=== PATIENT | female | born 1990 | race Caucasian/White ===

== ENCOUNTER → 2019-08-18 09:50 | Outpatient (CLI) | payer OTHER, SELFPAY ==
[2019-08-18 15:57] LABS: Rubella Antibody IgG 29.5 IU/mL (>15)
[2019-08-19 10:12] LABS: Varicella IgG Antibody 536 index (Immune >165)
== END ==
PROVIDERS: PCP Registered Nurse Diabetes Educator; Referring Provider Obstetrics & Gynecology; Visit Provider Obstetrics & Gynecology
DX: Z01.84 Encounter for antibody response examination (principal)
CPT/HCPCS: 86762; 86765; 86787

== ENCOUNTER → 2019-11-25 17:09 | Outpatient (CLI) | payer OTHER, SELFPAY ==
[2019-11-25 18:19] LABS: Add Manual Diff / Slide Review NO; Basophils Absolute Auto 0 /uL (0-100); Basophils Percent Auto 0.1 % (0-2); Eosinophils Absolute Auto 100 /uL (0-450); Eosinophils Percent Auto 0.5 % (2-4); Hematocrit 35.1 % (36-46); Lymphocytes Absolute Auto 1800 /uL (1100-4500); Lymphocytes Percent Auto 16.6 % (25-40); Mean Corpuscular HGB Conc 34.2 % (30-36); Mean Corpuscular Hemoglobin 32.2 PG (26-34); Mean Corpuscular Volume 94.2 fL (80-100); Monocytes Absolute Auto 700 /uL (0-900); Monocytes Percent Auto 6.9 % (3-14); Neutrophils Absolute Auto 8100 /uL (1500-7000); Neutrophils Percent Auto 75.9 % (50-75); Platelet Count 209 X10^3/uL (150-400); Red Blood Cell Count 3.73 X10^6/uL (4.0-5.2); Red Cell Distribution Width 12.9 % (11.6-14.8); White Blood Cell Count 10.6 X10^3/uL (4.5-11.0)
[2019-11-25 19:04] LABS: Hepatitis B Surface Antigen NEGATIVE s/c (NEGATIVE); Rubella Antibody IgG 21.4 IU/mL (>15)
[2019-11-25 19:30] LABS: HIV 1 & 2 Ab/Ag 4th Gen Combo NEGATIVE (NEGATIVE); Hep C Virus Ab w/Reflex Quant NEGATIVE s/c (NEGATIVE)
[2019-11-25 19:38] LABS: Appearance Urine UA CLEAR; Bilirubin Urine UA NEGATIVE (NEGATIVE); Color Urine UA YELLOW; Glucose Urine UA NEGATIVE (Negative); Ketones Urine UA NEGATIVE (NEGATIVE); Leukocyte Esterase Urine UA NEGATIVE (NEGATIVE); Nitrite Urine UA NEGATIVE (Negative); Occult Blood Urine UA NEGATIVE (Negative); Protein Urine UA NEGATIVE (Negative); Specific Gravity Urine UA <=1.005 (1.000-1.035); Urobilinogen Urine UA 0.2 E.U./dL (0.2)
[2019-11-25 19:39] LABS: pH Urine UA 6.5 (4.5-8.0)
[2019-11-27 04:47] LABS: RPR Screen Non Reactive (Non Reactive)
== END ==
PROVIDERS: PCP Registered Nurse Diabetes Educator; Referring Provider Obstetrics & Gynecology; Visit Provider Obstetrics & Gynecology
DX: Z34.81 Encounter for supervision of other normal pregnancy, first trimester (principal)
CPT/HCPCS: 36415; 80055; 81003; 86803; 86850; 86900; 86901; 87086; 87389; 87491; 87591

== ENCOUNTER → 2020-02-21 07:32 | Outpatient (CLI) | payer OTHER, SELFPAY ==
--- NOTE | 2020-02-21 07:34 | DI.US.S_ITS ---
PROCEDURE: US OB >= 14 WEEKS FETUS INDICATIONS: Anatomy Scan OUTSIDE/PRIOR DATING DATA: First dating scan (date and location): 11/25/2019 . Estimated date of delivery (CHRISTOPHER) from first dating scan: 07/11/2020 . TECHNIQUE: Real-time scanning was performed of the fetus, with image documentation and biometric measurements. Endovaginal scanning: No COMPARISON: [facility], , OB >= 14 WEEKS FETUS, 02/20/2020, 12:02. FINDINGS: General: A single living intrauterine gestation is present. Presentation: Breech. Placenta: Placental position is posterior , without previa. Amniotic fluid index: 12.2 cm, normal range is 5-24 cm. heart rate: 152 beats per minute. Maternal cervical canal: 3.9 cm long. Normal lower limit is 2.5 cm. biometrics: Biparietal diameter: 20 weeks 1 day Head circumference: 20 weeks 1 day Abdominal circumference: 20 weeks 6 days Femur length: 19 weeks 6 days Estimated gestational age from initial scan: 19 weeks 6 days Composite gestational age from present scan: 20 weeks 2 days Estimated weight and percentile: 347 g; 73rd percentile Measurement variability for biometric dating: +/- 7 days from 14 weeks to 15 weeks 6 days gestation, +/- 10 days from 16 weeks to 21 weeks 6 days gestation, +/- 2 weeks from 22 weeks to 27 weeks 6 days gestation, +/- 3 weeks for 28 weeks gestation or later. weight reference: 4500 g or EFW >90/95% is considered macrosomia or large for gestational age. EFW <10% is small for gestational age. EFW 5% or less is considered intra-uterine growth restriction. Anatomic survey: Neuro: Ventricles are non-dilated at less than 10 mm. Cisterna magna is normal at 3-11 mm. Cerebellum is normal in size and morphology. Nuchal skin fold: Normal at less than 6 mm between 14-21 weeks gestational age. Face: Nose and lips, facial profile are normal. Spine: No evidence for spina bifida. Heart: 4-chambered heart is present, with normal ventricular outflow tracts. Diaphragm: Diaphragm is intact. Stomach: Left-sided stomach is present. Kidneys: No hydronephrosis. Normal is less than 5 mm in 2nd trimester, less than 7 mm in 3rd trimester. Cord: 3-vessel cord has orthotopic insertion. Bladder: Normal in size. Extremities: All 4 extremities identified. IMPRESSION: 1. Single living IUP redemonstrated and interval growth is normal. 2. Normal anatomic survey. Dictated by: Enmanuel Guzman [facility] Interpreted: Hudson Copeland MD on 02/21/2020 at 9:43 Approved by: Hudson Copeland M.D. on 02/21/2020 at 14:56
== END ==
PROVIDERS: PCP Registered Nurse Diabetes Educator; Referring Provider Obstetrics & Gynecology; Visit Provider Obstetrics & Gynecology
DX: Z34.02 Encounter for supervision of normal first pregnancy, second trimester (principal); Z3A.19 19 weeks gestation of pregnancy
CPT/HCPCS: 76811

== ENCOUNTER → 2020-03-19 14:00 | Outpatient (ROUT) | payer OTHER, SELFPAY ==
[2020-03-19 17:30] LABS: Urine N gonorrhoeae NOT DETECTED
[2020-03-19 17:31] LABS: Urine Chlamydia NOT DETECTED
== END ==
PROVIDERS: PCP Registered Nurse Diabetes Educator; Visit Provider Obstetrics & Gynecology
DX: Z34.82 Encounter for supervision of other normal pregnancy, second trimester (principal); Z3A.23 23 weeks gestation of pregnancy
CPT/HCPCS: 87491; 87591

== ENCOUNTER → 2020-04-07 10:39 | Outpatient (CLI) | payer OTHER, SELFPAY ==
[2020-04-07 12:19] LABS: Hematocrit 33.9 % (36-46); Hemoglobin 11.5 g/dL (12.0-16.0)
[2020-04-07 12:49] LABS: GTT (PREG) 1 Hour PP 50gm Dose 93 mg/dL (76-139)
== END ==
PROVIDERS: PCP Registered Nurse Diabetes Educator; Referring Provider Obstetrics & Gynecology; Visit Provider Obstetrics & Gynecology
DX: Z34.02 Encounter for supervision of normal first pregnancy, second trimester (principal); Z3A.26 26 weeks gestation of pregnancy
CPT/HCPCS: 36415; 82950; 85014; 85018; 86850; 86870; 86886

== ENCOUNTER → 2020-06-18 16:35 | Outpatient (CLI) | payer OTHER, SELFPAY ==
[2020-06-19 14:47] LABS: Strep Grp B PCR NEG for Grp B Strep
== END ==
PROVIDERS: PCP Registered Nurse Diabetes Educator; Visit Provider Obstetrics & Gynecology
DX: Z34.03 Encounter for supervision of normal first pregnancy, third trimester (principal); Z3A.36 36 weeks gestation of pregnancy
CPT/HCPCS: 87653

== ENCOUNTER 2020-07-03 13:17 | Inpatient (IN) | payer OTHER, SELFPAY ==
[2020-07-03] MEDS: LACTATED RINGERS 1,000 ML 999 ML IV ×2 (14:05→16:20)
--- NOTE | 2020-07-03 14:12 | P.HPOB_ITS ---
OB HPI Date/Time Date of admission: 07/03/20 Date Patient Seen: 07/03/20 Time Patient Seen: 15:00 History of Present Condition Chief complaint: NST : 1 Para: 0 Estimated Date of Delivery: 07/10/20 Estimated Gestational Age (weeks): 39 Narrative: Marianna Ribera is a 29 year old @39+0 presenting in active labo r. Patient reports contractions started this AM, denies LOF or vaginal bleeding, reports good movement with no other symptoms or concerns. has been otherwise uncomplicated, with no contributory medical, surgical, family, or social history. History of Present care: good care, initiated at week # (7), number of visits (13) and pounds weight gain (20) Dating criteria: based on 1st trimester US only Ultrasounds: normal 1st trimester US and normal mid trimester US Obstetrical complications: none Medical complications: none Preadmission Labs Blood type: B (-) negative -: Antibody screen: negative ([facility] 04/30), GBS status: negative, HBsAG: negative, HIV: negative and RPR/VDLR: negative -: Chlamydia screen: not detected and Gonorrhea screen: not detected -: Rubella: immune and Varicella: immune Integrated screen: declined aneuploidy screening 1 hr GTT: 93 Evaluation Evaluation Baseline heart rate: 135 Variability: Moderate (11-25) monitor accelerations: Present Monitor Decelerations: Absent Contraction Frequency (minutes): 6 Category of Tracing: Reactive Status: Category l Cervical dilation (cm): 5 Cervical effacement (%): 100 station: 0 PFSH Medical History Chicken pox (~1993) Surgical History Anesthesia History of tonsillectomy (~1997) Family History Grandfather History of heart disease Grandmother History of heart disease Grandfather Diabetes mellitus Father Hyperlipidemia Grandmother No problems noted. Mother No problems noted. Social History marital status: number of children: 0 household members: spouse lives independently: Yes caregiver/support person: No housing: house pets and animals: No education level: college occupational status: employed current occupational exposures/hazards: No Previous occupational history: New Job with [employer] working from home still angy/rastafarian: [employer]ish special angy needs: No seatbelt use: always Smoking Status: Never smoker second hand exposure: No alcohol intake: former (Socially, maybe 1-2 nights a week, 1-2 drinks. Had 1-2 glasses wine before realized she was . ) substance use type: does not use during the past year weight has: remained stable Type(s) of exercise: regular exercise (Goes to gym, does classes, plays tennis. ) frequency: 5-6 times per week duration: 45-60 minutes/day Meds Home Medications and Allergies Home Medications Medication Instructions Recorded Confirmed Type prenat.vits,rg,cuy-[id number] 1 tab PO DAILY 11/22/19 03/19/20 History Allergies Allergy/AdvReac Type Severity Reaction Status Date / Time No Known Drug Allergies Allergy Verified 08/18/19 08:57 Review of Systems Constitutional Constitutional: Reports system reviewed and no additional complaints, except as documented Cardiovascular Cardiovascular: Reports system reviewed and no additional complaints, except as documented Respiratory Respiratory: Reports system reviewed and no additional complaints, except as documented Gastrointestinal Gastrointestinal: Reports system reviewed and no additional complaints, except as documented Genitourinary Genitourinary: Reports as per HPI Neurologic Neurologic: Reports system reviewed and no additional complaints, except as documented Exam Vital Signs (past 8 hours): 116/76, HR 80, T 36+2 Resp Effort & Inspection: normal respiratory effort Auscultation: clear to auscultation bilaterally Cardio Rate: regular rate Rhythm: regular rhythm GI Palpation: soft and No tender Extrem General: normal to inspection Objective Labs Result Diagrams: 07/03/20 14:10 Assessment and Plan Assessment and Plan Assessment and Plan narrative: THis patient presents in active labor at 39+0, after an otherwise uncomplicated . EFW 7#0. For labs, IV, epidural when desired. Anticipate .
[2020-07-03 14:53] LABS: Add Manual Diff / Slide Review NO; Basophils Absolute Auto 100 /uL (0-100); Basophils Percent Auto 0.5 % (0-2); Eosinophils Absolute Auto 0 /uL (0-450); Eosinophils Percent Auto 0.2 % (2-4); Hematocrit 37.4 % (36-46); Lymphocytes Absolute Auto 1200 /uL (1100-4500); Lymphocytes Percent Auto 9.3 % (25-40); Mean Corpuscular HGB Conc 34.8 % (30-36); Mean Corpuscular Volume 94.8 fL (80-100); Monocytes Absolute Auto 800 /uL (0-900); Neutrophils Absolute Auto 10800 /uL (1500-7000); Platelet Count 183 X10^3/uL (150-400); Red Blood Cell Count 3.94 X10^6/uL (4.0-5.2); Red Cell Distribution Width 13.5 % (11.6-14.8); White Blood Cell Count 12.9 X10^3/uL (4.5-11.0)
[2020-07-03 15:43] LABS: COVID19 - ADMIT (NP swab/PCR) Negative (Negative)
[2020-07-03 15:45] VITALS: BP 108/69
--- NOTE | 2020-07-03 17:05 | PM.OBPNLAB ---
Date/Time Date Patient Seen: 07/03/20 Time Patient Seen: 17:05 Pain Control Pain control: epidural Pelvic Exam Dilation (cm): 9 Effacement (%): 100 station: 0 Amniotic membrane status: Ruptured (AROM, clear) Status status: Category l Heart Rate Baseline: 140 Monitor Accelerations: Present Monitor Decelerations: Absent Monitor Variability: Moderate Assessment and Plan Assessment: active labor Plan: continuous present management Comments: Patient 9.5cm, now ruptured, comfortable with epidural. Peanut ball in place. EFW 7#, anticipate .
[2020-07-03] MEDS: OXYTOCIN PREMIX 30 UNIT/500 ML PLAST..BAG 200 UNIT IV (18:49)
--- NOTE | 2020-07-03 19:26 | PM.OBPRVD ---
Labor & Delivery Delivery date: 07/03/20 Intrapartal Events: Acceleration and Deceleration Cervical ripening method: none Induction method: none Delivery augmentation: rupture of membranes Delivery monitor: external FHT and external uterine Route of delivery: L&D Laceration Description: Perineal - 2nd Degree and Labial (left, upper) Delivery repair: vicryl Estimated blood loss (mL): 150 Anesthesia Type: Epidural Narrative: This patient presented to Labor and delivery in active labor at 39 weeks gestation. She progressed spontaneously, augmented with AROM for clear fluid at 9.5 cm dilated. After a 30 minutes pushing stage complicated by variable decelerations, she was delivered of a healthy baby boy. A loose nuchal cord and a loose body cord were reduced at the time of delivery without complication. The shoulders delivered with ease, and the placenta delivered intact and spontaneously shortly thereafter. A 2nd degree perineal laceration and a left labial laceration were repaired with 2-0 and 3-0 vicryl in the usual fashion, and she received pitocin per the usual protocol. There were no other intrapartum or immediate complications. Baby 1: gender: Male Presentation: vertex Position: Left Occiput Anterior Placenta delivery description: Spontaneous Cord Vessel Description: 3 Vessels, Nuchal Cord and Loose score (1 min): 8 score (5 min): 9 weight: 7 lb 2 oz Plan for aftercare: Routine care
[2020-07-04] MEDS: IBUPROFEN 600 MG TABLET PO ×3 (00:18→13:37)
[2020-07-04] MEDS: ACETAMINOPHEN 325 MG TABLET 650 MG PO ×3 (00:18→13:38)
[2020-07-04] MEDS: DERMOPLAST SPRAY 20% 60 ML 1 SPRAY TOP (13:37)
[2020-07-04] MEDS: RHO(D) IMMUNE GLOBULIN 1,500 UNIT SYRINGE 1500 UNIT IM (18:37)
== END 2020-07-04 19:50 | disposition home or self-care (01) | DRG 807 ==
PROVIDERS: Admitting Provider Obstetrics & Gynecology; PCP Registered Nurse Diabetes Educator; Referring Provider Obstetrics & Gynecology; Visit Provider Obstetrics & Gynecology
DX: O69.1XX0 Labor and delivery complicated by cord around neck, with compression, not applicable or unspecified (principal); Z37.0 Single live birth; Z3A.39 39 weeks gestation of pregnancy; O70.1 Second degree perineal laceration during delivery; O76 Abnormality in fetal heart rate and rhythm complicating labor and delivery
CPT/HCPCS: 01967; 36415; 59050; 59400; 85025; 85461; 86850; 86900; 86901; 87635; C9803; G0379; J2590; J2790